=== PATIENT | male | born 1970 | race American Indian/Alaskan Native ===

== ENCOUNTER 2017-04-22 15:31 | Emergency (ER) | payer SELFPAY ==
[2017-04-22] MEDS ORDERED: TYLENOL PO ONE (16:30)
[2017-04-22] MEDS ORDERED: TYLENOL ONE (16:36)
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
[2017-04-22 20:01] VITALS: BP 151/100
[2017-04-22] MEDS ORDERED: TORADOL IM ONE (21:03)
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
[2017-04-22] MEDS ORDERED: TORADOL ONE (21:17)
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
== END 2017-04-22 22:03 | disposition home or self-care (01) ==
LOC: ED 15:31
DX: S16.1XXA Strain of muscle, fascia and tendon at neck level, initial encounter (principal); S39.012A Strain of muscle, fascia and tendon of lower back, initial encounter; V43.52XA Car driver injured in collision with other type car in traffic accident, initial encounter; Y93.9 Activity, unspecified; Y99.9 Unspecified external cause status; Y92.410 Unspecified street and highway as the place of occurrence of the external cause
CPT/HCPCS: 70450; 72100; 96372; 99284; J1885

== ENCOUNTER 2017-09-08 11:58 | Emergency (ER) | payer BC ==
[2017-09-08 12:37] VITALS: BP 144/96
--- NOTE | 2017-09-08 14:42 | Emergency Department Report ---
ED Altered Mental Status HPI - General Chief Complaint: Extremity Injury, Upper Stated Complaint: LEFT HAND PAIN Time Seen by Provider: 09/08/17 14:20 Source: patient Mode of arrival: Ambulatory Limitations: No Limitations - History of Present Illness Initial Comments: This is a 47-year-old [place] male who states he woke up this morning with tingling and numbness to the left thumb. Patient states he has weakness in the thumb as well. Patient denies any trauma states he went to sleep fine and woke up this morning and has a hard time gripping this because of his thumb. Patient states some discomfort as a tingling sensation but he would not rated his pain. Patient denies any swelling again denies any injury - Related Data Previous Rx's Medication Instructions Recorded Last Taken Type Cyclobenzaprine [Flexeril] 10 mg PO TID PRN #30 tablet 04/22/17 Unknown Rx Naproxen [Naprosyn TAB] 500 mg PO BID PRN #30 tablet 04/22/17 Unknown Rx Allergies Allergy/AdvReac Type Severity Reaction Status Date / Time No Known Allergies Allergy Unverified 04/22/17 16:25 ED Review of Systems ROS: Stated complaint: LEFT HAND PAIN Other details as noted in HPI Comment: All other systems reviewed and negative ED Past Medical Hx - Past Medical History Previous Medical History?: No - Surgical History Past Surgical History?: No - Social History Smoking Status: Never Smoker Substance Use Type: Alcohol - Medications Home Medications: Home Medications Medication Instructions Recorded Confirmed Last Taken Type Cyclobenzaprine [Flexeril] 10 mg PO TID PRN #30 tablet 04/22/17 Unknown Rx Naproxen [Naprosyn TAB] 500 mg PO BID PRN #30 tablet 04/22/17 Unknown Rx ED Physical Exam - General Limitations: No Limitations General appearance: alert, in no apparent distress - Head Head exam: Present: atraumatic, normocephalic - Eye Eye exam: Present: normal appearance - ENT ENT exam: Present: mucous membranes moist - Neck Neck exam: Present: normal inspection - Respiratory Respiratory exam: Present: normal lung sounds bilaterally. Absent: respiratory distress - Cardiovascular Cardiovascular Exam: Present: regular rate, normal rhythm. Absent: systolic murmur, diastolic murmur, rubs, gallop - GI/Abdominal GI/Abdominal exam: Present: soft, normal bowel sounds - Rectal Rectal exam: Present: deferred - Extremities Exam Extremities exam: Present: normal inspection, other (the left hand on the dorsum of the hand does have a ganglion cyst but this is not infected or appearing to inhibit thumbed anyway. Patient has no tenderness along the extensor tendons of the thumb there is no swelling to the thumb or erythema) - Back Exam Back exam: Present: normal inspection - Neurological Exam Neurological exam: Present: alert, oriented X3 - Psychiatric Psychiatric exam: Present: normal affect, normal mood - Skin Skin exam: Present: warm, dry, intact, normal color. Absent: rash ED Course Vital Signs 09/08/17 12:33 Temperature 97.7 F Pulse Rate 72 Respiratory 18 Rate Blood Pressure 144/96 O2 Sat by Pulse 97 Oximetry - Medical Decision Making Patient has a orthopedic appointment tomorrow patient was placed in a thumb spica splint and will be discharged home Critical care attestation.: If time is entered above; I have spent that time in minutes in the direct care of this critically ill patient, excluding procedure time. ED Disposition Clinical Impression: Paresthesia and pain of extremity Disposition: DC-01 TO HOME OR SELFCARE Is pt being admited?: No Does the pt Need Aspirin: No Condition: Stable Instructions: Paresthesia (ED) Referrals: PRIMARY CARE, [Primary Care Provider] - 3-5 Days
== END 2017-09-08 15:00 | disposition home or self-care (01) ==
LOC: ED 11:58
DX: R20.2 Paresthesia of skin (principal); M62.81 Muscle weakness (generalized); M79.642 Pain in left hand